=== PATIENT | female | born 1980 | race Caucasian/White ===

== ENCOUNTER 2020-04-13 08:29 | Emergency (ER) | payer OTHER, SELFPAY ==
[2020-04-13 08:35] VITALS: BP 152/94; PULSE 95; RESP 16; TEMP 36.4; O2SAT 100
--- NOTE | 2020-04-13 08:37 | ED.FEMALEGU ---
HPI - Female Genitourinary General Chief complaint: Urogenital-Female Stated complaint: POS UTI Time Seen by Provider: 04/13/20 08:37 Source: patient and RN notes reviewed History of Present Illness HPI Narrative: Patient is a 40-year-old female who presents the urgent care with complaints of a possible UTI. Patient states that it started last night with urgency, frequency, suprapubic pressure and decreased urinary amounts. Patient denies any notable blood in the urine, nausea, vomiting, fever, abdominal pain, back pain. Patient denies of any frequent history of UTIs. States that she took ibuprofen last night without much relief. No other acute complaints. No acute distress noted. Patient aware of the plan of care. Some parts of this dictation were generated by voice recognition software and may contain typographical and/or grammatical inaccuracies. Related Data Allergies Allergy/AdvReac Type Severity Reaction Status Date / Time No Known Allergies Allergy Verified 04/13/20 08:37 Review of Systems Review of Systems: Narrative: CONSTITUTIONAL: Denies fever, chills, or sweats. EYES: Denies visual changes, redness, or discharge. ENT: Denies rhinorrhea, congestion, sore throat, or otalgia. CARDIOVASCULAR: Denies chest pain, palpitations, or edema. RESPIRATORY: Denies cough or dyspnea. GASTROINTESTINAL: Denies abdominal pain, nausea, vomiting, or diarrhea. GENITOURINARY: Reports of urinary frequency, urgency, suprapubic pressure and decreased urine amounts SKIN: Denies rash or itching. MUSCULOSKELETAL: Denies back pain, joint pain, or myalgia. NEUROLOGIC: Denies headache, numbness, or weakness. All other systems reviewed are negative, except as documented in HPI. [facility] Past Medical History Medical History (Updated 04/13/20 @ 08:51 by QUINCY Lucas) Vaginal delivery x 3 Family History Family History Mother No problems noted. Social History Social History Smoking status: Never smoker Second hand tobacco smoke exposure: No Alcohol intake: current Comments At the time of my signature, I reviewed and agree with the nursing past medical, surgical, social, and family history. There is no relevant family history pertinent to the patient complaint. Exam Narrative: Exam Narrative: GENERAL: This is a well-nourished, well-developed patient, in no apparent distress. HEAD: normocephalic, atraumatic. EYES: PERRL. Sclera clear/white. Vision is grossly intact. EARS: External ears normal NOSE: External nose normal with no obvious nasal discharge, nares without redness, no rhinorrhea. THROAT: Mucous membranes moist NECK: Neck supple GASTROINTESTINAL: Abdomen soft, mild suprapubic pressure, nondistended. Bowel sounds are active. SKIN: warm, intact with no suspicious lesions or rash, good texture and turgor. NEURO: awake, alert, and oriented to person, place and time. There were no obvious focal neurologic abnormalities. EXTREMITIES: No clubbing, cyanosis, or edema. BACK: Negative bilateral CVA tenderness Course Vital Signs Vital signs: Vital Signs Temperature 97.6 F 04/13/20 08:35 Pulse Rate 95 04/13/20 08:35 Respiratory Rate 16 04/13/20 08:35 Blood Pressure 152/94 H 04/13/20 08:35 Pulse Oximetry 100 04/13/20 08:35 Temperature 97.6 F 04/13/20 08:35 Pulse Rate 95 04/13/20 08:35 Respiratory Rate 16 04/13/20 08:35 Blood Pressure 152/94 H 04/13/20 08:35 Pulse Oximetry 100 04/13/20 08:35 Reviewed-patient is informed that they may have pre-hypertension or hypertension based on a blood pressure reading in the department. I recommend the patient call the primary care provider listed on their discharge instructions or a physician of their choice this week to arrange follow-up for further evaluation of possible pre-hypertension or hypertension. MDM - Female Genitourinar
== END 2020-04-13 08:56 | disposition home or self-care (01) ==
PROVIDERS: Emergency Provider Nurse Practitioner Family
DX: N39.0 Urinary tract infection, site not specified (principal)
CPT/HCPCS: 81003; 87086; 99213; G0463

== ENCOUNTER 2021-11-29 16:01 | Emergency (ER) | payer BC, SELFPAY ==
[2021-11-29 16:15] VITALS: BP 145/86; PULSE 73; RESP 18; TEMP 36.5; O2SAT 100
--- NOTE | 2021-11-29 19:38 | ED.GENADULT ---
HPI - General Adult General Chief complaint: Skin/Abscess/Foreign Body Stated complaint: abscess on chest History of Present Illness HPI narrative: 41 y/o female. PMHx None reported. Presents to [facility] today with acute complaints of a red and tender spot located to her RT breast for the past 5 days. Client describes to initially noticed a small amount of redness to her breast, and since the area has become more tender and irritated. She is concerned for infection to site. No fevers. No breast injury or trauma. No globalized or severe pain. She denies nipple inversion or discharge. Non-diabetic. Not currently . She is established w/local DIRECT MAIL MANAGER Lexx Moseley, however was unable to be seen in clinic acutely today. No additional acute c/o upon PE. Related Data Home Medications Medication Instructions Recorded Confirmed levonorgestrel 17.5 mcg/24 hrs 1 device intrauterine ONCE 11/29/21 11/29/21 (5yrs) 19.5mg intrauterine device (Kyleena) Allergies Allergy/AdvReac Type Severity Reaction Status Date / Time No Known Allergies Allergy Verified 11/29/21 16:26 Review of Systems Review of Systems: CONSTITUTIONAL: Denies fever, chills, sweats. EYES: Denies visual changes, redness, discharge. ENT: Denies rhinorrhea, congestion, sore throat, otalgia. CARDIOVASCULAR: Denies chest pain, palpitations, edema. RESPIRATORY: Denies dyspnea, wheezing, cough GASTROINTESTINAL: Denies abdominal pain, nausea, vomiting, diarrhea. GENITOURINARY: Denies dysuria, hematuria, abnormal discharge SKIN: Red and irritated spot to RT breast X 5 days. No rash or itching. MUSCULOSKELETAL: Denies acute back pain, joint pain, or myalgia. NEUROLOGIC: Denies numbness, or focal weakness. PSYCHIATRIC: Denies anxiety or depression. [facility] Past Medical History Medical History Vaginal delivery x 3 Family History Family History Mother No problems noted. Social History Social History Smoking status: Never smoker Second hand tobacco smoke exposure: No Alcohol intake: current Exam Narrative: GENERAL: This is a well-nourished, well-developed adult, in no apparent distress. HEAD: normocephalic. EYES: Sclera clear/white. EARS: External ears normal. NOSE: External nose normal. THROAT: Mucous membranes moist. NECK: Neck supple. CARDIOVASCULAR: Regular rate and rhythm. RESPIRATORY: Clear to auscultation. GASTROINTESTINAL: Abdomen soft. SKIN: With a localized 2 cm area of erythema and induration overlying her RT breast soft tissue, respectively @ the 3 O'Clock position. Area is soft, tender to touch. No obvious fluctuance at site. Clear margins, no hard or immobile masses. Nipple is normal, without redness, warmth, discoloration, discharge, or inversion. Remainder of Breast exam is negative. NEURO: Alert, No focal neurologic deficits. Course Course Level of Care: Express Care Visit Vital Signs Vital signs: Vital Signs Temperature 36.5 C 11/29/21 16:15 Pulse Rate 73 11/29/21 16:15 Respiratory Rate 18 11/29/21 16:15 Blood Pressure 145/86 H 11/29/21 16:15 Pulse Oximetry 100 11/29/21 16:15 Oxygen Delivery Room Air 11/29/21 16:15 Temperature 36.5 C 11/29/21 16:15 Pulse Rate 73 11/29/21 16:15 Respiratory Rate 18 11/29/21 16:15 Blood Pressure 145/86 H 11/29/21 16:15 Pulse Oximetry 100 11/29/21 16:15 Oxygen Delivery Room Air 11/29/21 16:15 The patient has been informed that they may have pre-hypertension or Hypertension based on a BP reading in the clinic. It is recommended that the patient call the primary care provider listed on their discharge instructions or a physician of their choice as soon as possible (within 1-2week) to arrange follow up for further evaluation of possible pre
== END 2021-11-29 16:50 | disposition home or self-care (01) ==
PROVIDERS: Emergency Provider Nurse Practitioner Adult Health
DX: N61.0 Mastitis without abscess (principal)
CPT/HCPCS: 99213; G0463

== ENCOUNTER → 2021-12-29 09:05 | Outpatient (CLI) | payer BC, SELFPAY ==
--- NOTE | ~2021-12-29 | US_ITS ---
Please refer to diagnostic mammography report dated 12/29/2021 for details. Reviewed, dictated and finalized at location A.
--- NOTE | ~2021-12-29 | MM_ITS ---
EXAMINATION: MM diagnostic sha BI w aliyah HISTORY: History of sebaceous cyst of the right breast which disappeared with antibiotic treatment. TECHNIQUE: Additional 3-D tomosynthesis images of the breasts were performed and synthetic 2-D images were generated. CAD analysis was submitted and interpreted. High resolution complete bilateral breas t ultrasound was performed. COMPARISON: No prior studies for comparison. BREAST PARENCHYMAL COMPOSITION: The breasts are extremely dense, which lowers the sensitivity of mamm ography FINDINGS: MAMMOGRAPHIC FINDINGS: There are no suspicious masses, calcifications or architectural distortion in either breast to sugges t malignancy. ULTRASOUND: Complete bilateral US of all 4 quadrants of the breasts and retroareolar region was reviewed. Normal heterogeneous echotexture throughout the right breast without discrete mass. In the left breast there is a 8 mm cyst at 2:00, 3 cm from the nipple and a 5 mm cyst at 11:00, 4 cm from the nipple. No susp icious masses in the left breast to suggest malignancy. IMPRESSION: 1. No evidence for malignancy in either breast. 2. Routine yearly screening mammogram and regular clinical breast examination are recommended. BI-RADS Category 2: Benign finding(s). Reviewed, dictated and finalized at location A. IMPRESSION: 1. No evidence for malignancy in either breast. 2. Routine yearly screening mammogram and regular clinical breast examination a re recommended. BI-RADS Category 2: Benign finding(s).
== END ==
PROVIDERS: PCP Obstetrics & Gynecology; Visit Provider Obstetrics & Gynecology
DX: N64.59 Other signs and symptoms in breast (principal)
CPT/HCPCS: 76641; 77062; 77066; G0279

== ENCOUNTER → 2023-01-18 14:01 | Outpatient (CLI) | payer OTHER, SELFPAY ==
--- NOTE | ~2023-01-18 | MM_ITS ---
EXAMINATION: MM screening sha BI w aliyah HISTORY: Screening mammogram TECHNIQUE: Craniocaudal and mediolateral oblique 3-D tomosynthesis images were obtained and synthetic 2-D images were generated. CAD analysis was submitted and interpreted. COMPARISON: 12/29/2021 BREAST PARENCHYMAL COMPOSITION: The breasts are heterogeneously dense, which may obscure small masses . FINDINGS: No suspicious mass, calcification, or architectural distortion are identified in either wesley ast to suggest malignancy. There has been no suspicious interval change. IMPRESSION: 1. No mammographic evidence of malignancy. 2. Recommend routine screening mammography in one year. BI-RADS Category 1: Negative Reviewed, dictated and finalized at location A.
== END ==
PROVIDERS: PCP Obstetrics & Gynecology; Visit Provider Obstetrics & Gynecology
DX: Z12.31 Encounter for screening mammogram for malignant neoplasm of breast (principal)
CPT/HCPCS: 77063; 77067

== ENCOUNTER 2024-11-28 15:41 | Outpatient (CLI) | payer OTHER, SELFPAY ==
--- NOTE | ~2024-11-28 | MM_ITS ---
EXAMINATION: MM screening sha BI w aliyah HISTORY: Screening TECHNIQUE: Craniocaudal and mediolateral oblique 3-D tomosynthesis images were obtained and synthetic 2-D images were generated. CAD analysis was submitted and interpreted. COMPARISON: Comparison to multiple prior studies sequentially, with oldest reviewed study dated , 12/29/2021 BREAST PARENCHYMAL COMPOSITION: The breasts are heterogeneously dense, which may obscure small masses. FINDINGS: There is no evidence of suspicious mass, calcification, or architectural distortion to suggest malignancy in either breast. IMPRESSION: 1. No mammographic evidence of malignancy. 2. Recommend routine screening mammography in one year. BI-RADS Category 1: Negative Reviewed, dictated and finalized at location B.
--- OUTSIDE RECORDS SUMMARY | 2024-11-28 16:51 | XMS_ITS | Clinical Summary ---
Author Organization [facility] Address [address] [place] [id number] Care Team Providers Care Farm Equipment Maintenance Supervisor Name Role Phone None, Provider MD Primary Care Provider Unavaila ble Allergies No known active allergies Medications No known medications Active Problems No known active problems Social History Tobacco Use Types Packs/Day Years Used Date Smoking Tobacco: Never Smokeless Tobacco: Never Tobacco Cessation:Counseling Given: Not Answered Alcohol Use Standard Drinks/Week Comments Never 0 (1 standard drink = 0.6 oz pur e alcohol) Comments Unknown Sex and Gender Information Value Date Recorded Sex Assigned at Not on file Legal Sex Female 8:41 PM CDT Gender Identity Not on file Sexual Orientation Not on file Last Filed Vital Signs Vital Sign Reading Time Taken Comments Blood Pressure 135/84 02/21/2023 8:51 AM CHRISTIAN SCIENCE NURSE Pulse 80 02/21/2023 8:51 AM CHRISTIAN SCIENCE NURSE Temperature 36.8 C (98.3 F) 02/21/2023 8:51 AM CHRISTIAN SCIENCE NURSE Respiratory Rate 18 02/21/2023 8:51 AM CHRISTIAN SCIENCE NURSE Oxygen Saturation 98% 02/21/2023 8:51 AM CHRISTIAN SCIENCE NURSE Inhaled Oxygen Concentration - - Weight 58.5 kg (129 lb) 02/21/2023 8:51 AM CHRISTIAN SCIENCE NURSE Height 160 cm (5' 3) 02/21/2023 8:51 AM CHRISTIAN SCIENCE NURSE Body Mass Index 22.85 02/21/2023 8:51 AM CHRISTIAN SCIENCE NURSE Plan of Treatment Health Maintenance Due Date Last Done Comments Cervical Cancer Screening Pa p Smear (Age 30 to 64) Every 3 Years 1982 Annual Physical 1985 Hepatitis C 02/12/2000 Hepatitis B Vaccines (1 of 3 - 19+ 3-dose series) 2001 HPV Vaccines (1 - 3-dose SCD M series) 2009 Cervical Cancer Screening Pa p with HPV Testing (Age 30 to 64) Every 5 Years 02/12/2012 Cervical Cancer Screening wi th HPV 02/12/2012 Mammogram Screening 2022 PHQ-2 (Physician [place]) 03/20/2024 COVID-19 Vaccine (3 - 2024-2 6 season) 2024 03/29/2021, 03/08/2021 DTaP, Tdap and Td Vaccines ( 4 - Td or Tdap) 10/05/2026 10/05/2016, 01/26/2015, 06/21/2013 Meningococcal B Vaccine Aged Out No l onger eligible based on patient's age to complete this topic Meningococcal Vaccine Aged Out No johana ivet eligible based on patient's age to complete this topic Pneumococcal Vaccine: Pediatrics (0 to 5 Years) and At-Risk Patients (6 to 49 Years) Aged Out No longer eligible b ased on patient's age to complete this topic RSV Immunizations Under 20 Months Aged Out No longer eligible b ased on patient's age to complete this topic Insurance Care Teams Farm Equipment Maintenance Supervisor Relationship Specialty Start Date End Date None, Provider, MD PCP - General UNKNOWN PHYSICIAN SPECIALTY 02/21/23
--- OUTSIDE RECORDS SUMMARY | 2024-11-28 16:51 | XMS_ITS | Clinical Summary ---
Author Organization [facility] [address] - [address] Address [address] [place] [address] Phone Care Team Providers Care Bobbin Handler Name Role Phone Unavailable Primary Care Provider Unavailabl e Allergies No known active allergies Medications VIT #91/FE FUM/FA/DHA ( + DHA ORAL) Take by mouth. Active Active Problems Problem Noted Date Diagnosed Date hydronephrosis in , antepartum condition 05/31/2013 Family History Medical History Relation Name Comments Healthy Father Healthy Mother Relation Name Status Comments Father Alive Mother Alive Social History Tobacco Use Types Packs/Day Years Used Date Smoking Tobacco: Never Assessed Comments Unknown Sex and Gender Information Value Date Recorded Sex Assigned at Not on file Legal Sex Female 8:55 AM CDT Gender Identity Not on file Sexual Orientation Not on file Last Filed Vital Signs Vital Sign Reading Time Taken Comments Blood Pressure 123/62 05/31/2013 3:49 PM CDT Pulse - - Temperature 36.5 C (97.7 F) 05/31/2013 3:49 PM CDT Respiratory Rate - - Oxygen Saturation - - Inhaled Oxygen Concentration - - Weight 68.1 kg (150 lb 0.4 oz) 05/31/2013 3:49 P M CDT Height 158.8 cm (5' 2.5) 05/31/2013 3:49 PM CDT Body Mass Index 27 05/31/2013 3:49 PM CDT Plan of Treatment Health Maintenance Due Date Last Done Comments DTAP/TDAP/TD VACCINES (1 - Tdap) 2001 HEPATITIS B VACCINES (1 of 3 - 19+ 3-dose series) 01/19 HPV/Cotest (21-29) 2003 HPV VACCINES (1 - 3-dose SCDM series) 2009 CERVICAL CANCER SCREENING 02/12/2012 HPV/Cotest (30-65) 02/12/2012 PAP SMEAR 02/12/2012 BREAST CANCER SCREENING 2022 INFLUENZA VACCINE (#1) 2024 Insurance [facility] BLUE ACCESS/TRUE BLUE PPO
== END 2024-11-28 15:42 | disposition home or self-care (01) ==
LOC: ANHFOHIMG 15:43
PROVIDERS: PCP Physician Assistant Medical; Visit Provider Obstetrics & Gynecology
DX: Z12.31 Encounter for screening mammogram for malignant neoplasm of breast (principal)
CPT/HCPCS: 77063; 77067